=== PATIENT | female | born 1930 | race Caucasian/White ===

== ENCOUNTER 2016-07-09 14:15 | Emergency (ER) | payer MEDICARE, MEDICAID ==
[~2016-07-09] VITALS: Ht 165.1 cm; Wt 61.2 kg
--- NOTE | 2016-07-09 14:45 | NUR ---
pt ambulatory to er bed 14 w/ steady gait c/o lower back and lt side groin area pain s/p missed a step in the stairs causing her body to twist. no actual fall. happens 5 days ago. awaiting md meyers.
--- NOTE | 2016-07-09 14:47 | NUR ---
dr lara at bedside for eval.
--- NOTE | 2016-07-09 15:08 | NUR ---
pt to radiology for pelvic ct scan via [facility].
--- NOTE | 2016-07-09 15:59 | NUR ---
Patient discharged to home in stable condition. Written and verbal after care instructions given. Patient verbalizes understanding of instruction.
[2016-07-09 16:18] VITALS: BP 156/77
== END 2016-07-09 16:18 | disposition home or self-care (01) ==
LOC: ER 14:21
DX: S76.012A Strain of muscle, fascia and tendon of left hip, initial encounter (principal); Z88.5 Allergy status to narcotic agent; W01.0XXA Fall on same level from slipping, tripping and stumbling without subsequent striking against object, initial encounter; Y93.01 Activity, walking, marching and hiking; Y92.89 Other specified places as the place of occurrence of the external cause; Y99.8 Other external cause status
CPT/HCPCS: 72192-TC; A4606; Z7610

== ENCOUNTER 2019-09-25 15:39 | Inpatient (IN) | payer MEDICARE, MEDICAID ==
[~2019-09-25] VITALS: Ht 160 cm; Wt 61.7 kg
--- NOTE | 2019-09-25 15:50 | NUR ---
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 ON ROOM AIR, BREATHING EVENLY AND UNLABORED. CONNECTED TO THE MONITOR AND PULSE OX. KEPT COMFORTABLE, WILL CONTINUE TO MONITOR ACCORDINGLY.
[2019-09-25] MEDS ORDERED: MORPHINE SULFATE INJ 2 MG/ML DISP.SYRIN ONE ×2 (15:58→17:35)
[2019-09-25] MEDS ORDERED: ONDANSETRON HCL/PF 4 MG/2 ML VIAL ONE (15:58)
[2019-09-25] MEDS ORDERED: ONDANSETRON HCL/PF 4 MG/2 ML VIAL IVP ONE (16:00)
[2019-09-25] MEDS ORDERED: MORPHINE SULFATE INJ 2 MG/ML DISP.SYRIN IV ONE ×2 (16:00→18:00)
[2019-09-25 16:04] LABS: BASOPHILS # (AUTO) 0.1 /CMM (0.0-0.2); BASOPHILS % (AUTO) 0.7 % (0.0-2.0); EOSINOPHILS % (AUTO) 2.9 % (0.0-6.0); HEMATOCRIT 39 % (33-45); HEMOGLOBIN 12.6 g/dL (11.5-14.8); LYMPHOCYTES # (AUTO) 3.9 /CMM (0.8-4.8); LYMPHOCYTES % (AUTO) 46.6 % (20.0-44.0); MEAN CORPUSCULAR HGB CONC 32 g/dl (31.0-36.0); MEAN CORPUSCULAR VOLUME 86 fL (82-100); MONOCYTES # (AUTO) 0.8 /CMM (0.1-1.30); MONOCYTES % (AUTO) 9.4 % (2.0-12.0); NEUTROPHILS # (AUTO) 3.3 /CMM (1.8-8.9); NEUTROPHILS % (AUTO) 40.4 % (43.0-81.0); PLATELET COUNT (AUTO) 307 /CMM (150-450); RED BLOOD CELL COUNT(AUTO) 4.54 MIL/uL (4.0-5.2); WHITE BLOOD COUNT (AUTO) 8.3 K/uL (4.3-11.0)
[2019-09-25 16:13] LABS: CALCIUM, SERUM 9.5 mg/dL (8.5-10.1)
[2019-09-25] MEDS ORDERED: METO25TA4 PO (16:54)
[2019-09-25] MEDS ORDERED: CYCL30DR EACHEYE (16:54)
[2019-09-25] MEDS ORDERED: BIMA2.5D5 EACHEYE (16:54)
[2019-09-25] MEDS ORDERED: AMLO5TAB9 PO (16:54)
[2019-09-25] MEDS ORDERED: CYAN10006 IM (16:54)
[2019-09-25] MEDS ORDERED: BRIM5DRO3 EACHEYE (16:54)
[2019-09-25] MEDS ORDERED: LEVO75TA7 PO (16:54)
--- NOTE | 2019-09-25 17:20 | NUR ---
BED 310-2
[2019-09-25] MEDS ORDERED: PROP10DR2 EACHEYE (18:07)
[2019-09-25] MEDS ORDERED: ONDANSETRON HCL/PF 4 MG/2 ML VIAL IVP PRN (19:00)
[2019-09-25] MEDS ORDERED: ACETAMINOPHEN 325 MG TABLET PO PRN (19:00)
[2019-09-25] MEDS ORDERED: Z GUARD REMEDY 2 OZ OINT TP PRN (19:00)
--- NOTE | 2019-09-25 19:05 | NUR ---
MS RN ADMITTING NOTES RECEIVED PT FROM ER VIA SHERI. PT A/OX 3 BELIZEAN SPEAKING. RESPIRATIONS EVEN AND UNLABORED WITH NO S/S OF ACUTE DISTRESS OR SOB NOTED. PT NOTED WITH IV ACCESS TO RAC 20G, LAC 18. ORIENTED PT TO ROOM AND STAFF. SAFETY MEASURES IN PLACE WITH BED IN LOWEST LOCKED POSITION WITH SIDE RAILS UP X2. CALL LIGHT WITHIN REACH. WILL CONTINUE TO MONITOR.
--- NOTE | 2019-09-25 19:07 | NUR ---
wheeled patient via gurney accompanied by RN and emt in no distress. Rn at bedside to assume care.
--- NOTE | 2019-09-25 19:15 | NUR ---
MS RN NOTES PT REFUSED TO CHANGE INTO GOWN, PT STATED "LATER, LATER." PT ALSO REFUSED PHOTOS WELL SKIN ASSESSMENT FOR BACK AND SACRUM. WILL CONTINUE TO MONITOR.
--- NOTE | 2019-09-25 19:20 | NUR ---
MS RN NOTES PT REFUSED TO BE TURNED, WELL TO HAVE HOB ELEVATED. PT STATES "IT HURTS WHEN MOVED." WILL CONTINUE TO MONITOR.
[2019-09-25 20:00] VITALS: BP 173/70
[2019-09-25] MEDS: MORPHINE SULFATE INJ 2 MG/ML DISP.SYRIN IV PRN (20:34)
[2019-09-25] MEDS: IV NS 0.9% 1,000 ML IV PRN (20:34)
[2019-09-25] MEDS: LATANOPROST EYE DROP 0.005% 2.5 ML BOTTLE EACHEYE SCH (21:57)
[2019-09-25] MEDS ORDERED: CLONIDINE HCL 0.1MG/24H PTWK 1 EA PATCH TD SCH (23:30)
--- NOTE | 2019-09-26 | NUR ---
MS RN NOTES PT NOTED WITH ELEVATED BP, MD MADE AWARE, NEW ORDER FOR CLONIDINE 0.1MG PATCH. WILL CONTINUE TO MONITOR.
[2019-09-26] MEDS: MORPHINE SULFATE INJ 2 MG/ML DISP.SYRIN IV PRN ×5 (01:16→21:57)
--- NOTE | 2019-09-26 03:00 | NUR ---
MS RN NOTES PT REFUSED DVT PUMPS AT THIS TIME. WILL CONTINUE TO MONITOR.
[2019-09-26 06:16] LABS: BASOPHILS % (AUTO) 0.2 % (0.0-2.0); HEMATOCRIT 37 % (33-45); LYMPHOCYTES # (AUTO) 1.3 /CMM (0.8-4.8); LYMPHOCYTES % (AUTO) 10.6 % (20.0-44.0); MEAN CORPUSCULAR HGB CONC 32 g/dl (31.0-36.0); MEAN CORPUSCULAR VOLUME 85 fL (82-100); MONOCYTES # (AUTO) 1.3 /CMM (0.1-1.30); MONOCYTES % (AUTO) 11.3 % (2.0-12.0); NEUTROPHILS # (AUTO) 9.2 /CMM (1.8-8.9); NEUTROPHILS % (AUTO) 77.9 % (43.0-81.0); PLATELET COUNT (AUTO) 282 /CMM (150-450); WHITE BLOOD COUNT (AUTO) 11.9 K/uL (4.3-11.0)
[2019-09-26 06:54] LABS: CALCIUM, SERUM 8.9 mg/dL (8.5-10.1); CREATININE 0.9 mg/dL (0.6-1.3); MAGNESIUM 1.7 mg/dL (1.8-2.4); PHOSPHORUS 3.2 mg/dL (2.5-4.9); POTASSIUM 4.2 mmol/L (3.5-5.1)
[2019-09-26] MEDS: LEVOTHYROXINE SODIUM 75 MCG TABLET PO SCH (07:30)
--- NOTE | 2019-09-26 07:35 | NUR ---
MS RN NOTES PT IN BED AND AWAKE. PT A/OX 3 SAMOAN SPEAKING. RESPIRATIONS EVEN AND UNLABORED WITH NO S/S OF ACUTE DISTRESS OR SOB NOTED THROUGHOUT SHIFT. PT NOTED WITH IV ACCESS TO LAC 20G, LHAND 20G INFUSING NS @75CC/HR. NO COMPLAINTS OF PAIN AT THIS TIME. SAFETY MEASURES IN PLACE WITH BED IN LOWEST LOCKED POSITION WITH SIDE RAILS UP X2. CALL LIGHT WITHIN REACH. WILL ENDORSE TO ONCOMING NURSE FOR TAURUS.
[2019-09-26 08:00] VITALS: BP 114/57
--- NOTE | 2019-09-26 08:00 | NUR ---
MS RN NOTES PT IN BED AND AWAKE. PT A/OX 3 SYRIAN SPEAKING. RESPIRATIONS EVEN AND UNLABORED WITH NO S/S OF ACUTE DISTRESS OR SOB NOTED. PT PREFERS TO BE FLAT IN BED REFUSING HOB TO BE ELEVATED. WITH KELLY CATHETER DRAINING YELLOW URINE OUTPUT. ON NPO. AWAITING ORTHO CONSULT. PT NOTED WITH IV ACCESS TO LAC 20G, LT HAND 20G INFUSING NS @75CC/HR. NO COMPLAINTS OF PAIN AT THIS TIME. SAFETY MEASURES IN PLACE WITH BED IN LOWEST LOCKED POSITION WITH SIDE RAILS UP X2. CALL LIGHT WITHIN REACH.
[2019-09-26 08:08] LABS: THYROID STIMULATING HORMONE 2.089 uIU/mL (0.358-3.74)
--- NOTE | 2019-09-26 08:20 | NUR ---
PT'S VTE SCORE OF >5 AND ANTICOAGULANT WAS HELD DUE TO PENDING SURGERY THAT WILL BE DONE ANYTIME TODAY PER DR PADILLA.
[2019-09-26] MEDS: AMLODIPINE BESYLATE 5 MG TABLET PO SCH (08:50)
[2019-09-26] MEDS: METOPROLOL SUCCINATE 25 MG TAB.SR.24H PO SCH (08:50)
[2019-09-26] MEDS ORDERED: ACETAMINOPHEN 650 MG/SUPP.RECT RC PRN (10:00)
[2019-09-26] MEDS: IV NS 0.9% 1,000 ML IV PRN (10:17)
[2019-09-26] MEDS: Magnesium 1GM/D5W 100ML PREMIX 100 ML IV SCH ×2 (11:36→13:11)
[2019-09-26] MEDS: BRIMONIDINE TARTRATE OPHT SOLN 5 ML BOTTLE EACHEYE SCH ×2 (12:04→17:28)
--- NOTE | 2019-09-26 13:03 | NUR ---
PT IS IN SO MUCH PAIN AND WAS CRYING NOTIFIED DR APDILLA WITH ORDERS TO GIVE MORPHINE SO4 4 MG IV ONE TIME.
[2019-09-26] MEDS ORDERED: MORPHINE SULFATE INJ 4 MG/ML DISP.SYRIN IV ONE (13:30)
--- NOTE | 2019-09-26 14:15 | NUR ---
Pt is always busy talking to her daughter on her cell phone. Pt keeps asking for Ortho consult if what time he's coming to see her. Explained that Coury,PA is coming anytime.
[2019-09-26 16:00] VITALS: BP 151/66
--- NOTE | 2019-09-26 19:00 | NUR ---
Pt lying in bed refused to be turned to change bed linen and do skin care for the whole shift since morning inspite of explaining the risks and benefits, but pt refused. Family made aware. Even if PRN pain meds was administered prior to turning, pt still insists to refuse. Emptied john bag with 700 ml yellow urine output. For Left hip IM rodding tomorrow with all consents signed. Family aware and wants to be notified what time will be pt's sx tomorrow. 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
--- NOTE | 2019-09-26 19:30 | NUR ---
MS RN NOTES RECEIVED ON BED A/O X3,SPEAK [place],BREATHING REGULAR,NOT IN ANY FORM DISTRESS,IVF NS 75ML/HR RATE INFUSING ON LEFT AC.NPO STATUS FOR SURGERY TOMORROW.S/P FALL AT HOME SUSTAINED LEFT HIP FRACTURE.KELLY CATH IN PLACE DRAINING YELLOWISH OUTPUT.CALL LIGHT IN REACH,NEEDS ANTICIPATED.
[2019-09-26 20:00] VITALS: BP 116/51
[2019-09-26 20:23] VITALS: BP 116/51
[2019-09-26] MEDS: LATANOPROST EYE DROP 0.005% 2.5 ML BOTTLE EACHEYE SCH (21:21)
--- NOTE | 2019-09-26 21:57 | NUR ---
MS RN NOTES PAIN MANAGEMENT C/O LEFT HIP 8/10 ON PAIN SCALE,MEDICATED WITH MORPHINE 4MG IV ORDERED.
[2019-09-27] VITALS (12 sets, daily range): BP systolic 96–150; BP diastolic 47–88
[2019-09-27] MEDS: IV NS 0.9% 1,000 ML IV PRN (00:11)
[2019-09-27 07:10] LABS: CALCIUM, SERUM 8.4 mg/dL (8.5-10.1); CREATININE 0.8 mg/dL (0.6-1.3); MAGNESIUM 1.9 mg/dL (1.8-2.4); POTASSIUM 4.2 mmol/L (3.5-5.1)
[2019-09-27] MEDS ORDERED: BUPIVACAINE 0.5 % PF 150 MG/30 ML VIAL ONE (07:25)
[2019-09-27] MEDS ORDERED: ANESTHESIA TRAY IN PYXIS 1 EA TRAY MC ONE ×2 (07:25→08:51)
[2019-09-27] MEDS ORDERED: BACITRACIN 50000 UNITS/VIAL ONE (07:26)
[2019-09-27] MEDS: LEVOTHYROXINE SODIUM 75 MCG TABLET PO SCH (07:30)
--- NOTE | 2019-09-27 07:30 | NUR ---
MS/RN OPENING NOTES Patient in bed, A&O x 3, Moldovan speaking. Breathing even and non-labored on 2L oxygen via NC. No respiratory or cardiac distress noted. No complaints of pain/discomfort at this time. IV access noted on the left hand #20, patent and intact, infusing NS @ 75ml/hr. 2nd IV access noted on Left AC #20, patent and intact, flushing well. No s/s of infection/infiltration noted on the sites. Fall precautions maintained. Will continue to monitor for any changes in condition.
[2019-09-27] MEDS ORDERED: FENTANYL PF 250MCG/5ML AMPUL ONE (08:38)
[2019-09-27] MEDS ORDERED: MIDAZOLAM HCL 2 MG/2ML VIAL ONE (08:38)
--- NOTE | 2019-09-27 08:55 | NUR ---
PT WAS BROUGHT TO O.R. FOR LEFT HIP IM RODDING PROCEDURE. Addendum: 09/27/19 at 0857 by MANUEL ROBISON RN WITH STABLE V/S.ABLE TO REMOVE PT'S TOP CLOTHES AND CHANGED TO HOSPITAL GOWN WHICH PT HAS BEEN REFUSING TO BE CHANGED SINCE YESTERDAY INSPITE OF EXPLANATIONS.
[2019-09-27 10:46] LABS: BASOPHILS % (AUTO) 0.5 % (0.0-2.0); EOSINOPHILS % (AUTO) 0.1 % (0.0-6.0); HEMATOCRIT 34 % (33-45); HEMOGLOBIN 10.9 g/dL (11.5-14.8); LYMPHOCYTES # (AUTO) 1.2 /CMM (0.8-4.8); LYMPHOCYTES % (AUTO) 13.1 % (20.0-44.0); MEAN CORPUSCULAR HGB CONC 32 g/dl (31.0-36.0); MEAN CORPUSCULAR VOLUME 87 fL (82-100); MONOCYTES # (AUTO) 1.1 /CMM (0.1-1.30); MONOCYTES % (AUTO) 11.6 % (2.0-12.0); NEUTROPHILS # (AUTO) 7.1 /CMM (1.8-8.9); NEUTROPHILS % (AUTO) 74.7 % (43.0-81.0); PLATELET COUNT (AUTO) 211 /CMM (150-450); RED BLOOD CELL COUNT(AUTO) 3.91 MIL/uL (4.0-5.2); WHITE BLOOD COUNT (AUTO) 9.5 K/uL (4.3-11.0)
--- NOTE | 2019-09-27 11:02 | NUR ---
DAVIS CISNEROS PA STATED THAT BLOOD THINNER (LOVENOX)CAN START TOMORROW S/P LT HIP IM RODDING.
--- NOTE | 2019-09-27 11:43 | NUR ---
PT CAME BACK FROM O.R. S/P LT HIP INTRAMEDULLARY RODDING BY DR DENNEY. PT LOST 100 ML BLOOD. PT ALERT, AWAKE AND VERBALLY RESPONSIVE. PT'S LT HIP SURGICAL DRESSING IS CLEAN,INTACT AND DRY. KELLY CATHETER DRAINING CLEAR YELLOW URINE OUTPUT AND KELLY CATH TO BE REMOVED TOMORROW . WAITING FOR PENDING CBC STAT RESULT. WILL START ON CARDIAC MECH SOFT WITH ASPIRATION PRECAUTIONS.WILL ADMINISTER PT'S BP MEDS. BP 145/68 HR 85 RR 18 T 97.8 O2 SAT 100%. WILL CONTINUE TO MONITOR PT'S V/S PER POST SX PROTOCOL. PT DENIES ANY PAIN AT THIS TIME. PT WATCHING ISRAEL[place] CHANNEL ON HER ROOM.WILL MONITOR.
[2019-09-27] MEDS: BRIMONIDINE TARTRATE OPHT SOLN 5 ML BOTTLE EACHEYE SCH ×2 (11:48→16:05)
[2019-09-27] MEDS: AMLODIPINE BESYLATE 5 MG TABLET PO SCH (11:48)
[2019-09-27] MEDS: METOPROLOL SUCCINATE 25 MG TAB.SR.24H PO SCH (11:49)
--- NOTE | 2019-09-27 12:00 | NUR ---
SERVED PT LUNCH MEAL AND ELEVATED HER HEAD TOLERATING WELL.PT EXPRESSED APPRECIATION OF HER SUCCESSFUL SX AND PT STATED THAT SHE IS SO HUNGRY THE PAST 2 SAYS THAT SHE HASN'T EATEN AND WAS SO WELL PLEASED WITH THE DELICIOUS MEAL BEING SERVED TO HER RIGHT NOW FOR LUNCH. CERTIFIED PERSONAL TRAINER,NINO AT THE BEDSIDE TRANSLATING FOR THE PT. P.T. ARRIVED AND SPOKE TO THE PT WELL WITH RODO MCDONALD RN TRANSLATING FOR THE P.T. WELL.
--- NOTE | 2019-09-27 12:05 | NUR ---
PT'S HGB WAS 11.1 NO NEED TO TRANSFUSE BLOOD AT THIS TIME.
[2019-09-27 12:26] LABS: BASOPHILS % (AUTO) 0.5 % (0.0-2.0); EOSINOPHILS % (AUTO) 0.2 % (0.0-6.0); HEMATOCRIT 35 % (33-45); HEMOGLOBIN 11.1 g/dL (11.5-14.8); LYMPHOCYTES # (AUTO) 1.5 /CMM (0.8-4.8); LYMPHOCYTES % (AUTO) 14.3 % (20.0-44.0); MEAN CORPUSCULAR HGB CONC 32 g/dl (31.0-36.0); MEAN CORPUSCULAR VOLUME 87 fL (82-100); MONOCYTES # (AUTO) 1.1 /CMM (0.1-1.30); MONOCYTES % (AUTO) 10.8 % (2.0-12.0); NEUTROPHILS # (AUTO) 7.6 /CMM (1.8-8.9); NEUTROPHILS % (AUTO) 74.2 % (43.0-81.0); PLATELET COUNT (AUTO) 239 /CMM (150-450); RED BLOOD CELL COUNT(AUTO) 4.01 MIL/uL (4.0-5.2); WHITE BLOOD COUNT (AUTO) 10.3 K/uL (4.3-11.0)
[2019-09-27] MEDS: IV LR 1000 ML 1,000 ML IV PRN (13:57)
[2019-09-27] MEDS: HYDROCODONE/APAP 5/325MG 1 EACH TABLET PO PRN (14:18)
[2019-09-27] MEDS: CEFAZOLIN 2 GM in IV D5W 100 ML IV SCH (17:06)
--- NOTE | 2019-09-27 19:00 | NUR ---
MS/RN CLOSING NOTES Patient in bed, A&O x 3, Paraguayan speaking. Breathing even and non-labored on 2L oxygen via NC, no SOB noted. No cardiac distress noted. No complaints of pain/discomfort at this time. IV access noted on the left hand #20, patent and intact, infusing LR @ 75ml/hr. 2nd IV access noted on Left AC #20, patent and intact, flushing well. No s/s of infection/infiltration noted on the sites. Cowan in place, draining clear,yellow urine well. Fall precautions maintained. Patient on mechanical soft diet. COVID results still pending, enoxaparin to be started tomorrow. Will endorse to web assistant nurse. Addendum: 09/27/19 at 2023 by FADY ECHEVARRIA RN In addition to above, Patient refused to turn and reposition in bed throughout the day despite explaining risks and benefits.
--- NOTE | 2019-09-27 19:30 | NUR ---
MS RN NOTED ON BED A/O X3,S/P LEFT HIP INTRAMEDULLARY RODDING,DRESSING INTACT AND DRY,ICE IN PLACE TO REDUCE PAIN.IVF LR AT 75ML/HR RATE IN PROGRESS VIA IV PUMP ON LEFT HAND SALINE LOCK,DVT PUMP IN USED FOR DVT PROPHYLAXIS.BLOOD THINNER TO START TOMORROW.PAIN TOLERABLE AT THE MOMENT.CALL LIGHT IN REACH,NEEDS ANTICIPATED.
[2019-09-27] MEDS: LATANOPROST EYE DROP 0.005% 2.5 ML BOTTLE EACHEYE SCH (20:59)
[2019-09-28] MEDS: CEFAZOLIN 2 GM in IV D5W 100 ML IV SCH (01:56)
--- NOTE | 2019-09-28 02:00 | NUR ---
MS RN NOTES SECOND DOSE OF ANCEF IV HUNG
[2019-09-28] MEDS: HYDROCODONE/APAP 5/325MG 1 EACH TABLET PO PRN ×2 (04:01→09:57)
--- NOTE | 2019-09-28 04:01 | NUR ---
MS RN NOTES PAIN MANAGEMENT AWAKE,C/O LEFT HIP PAIN 7/10 ON PAIN SCALE,MEDICATED WITH NORCO 5/325MG,1 TAB PO GIVEN WITH APPLE SAUCE.NEGATIVE FOR ASPIRATION.
[2019-09-28] MEDS: IV LR 1000 ML 1,000 ML IV PRN (06:10)
[2019-09-28 06:48] LABS: BASOPHILS % (AUTO) 0.5 % (0.0-2.0); EOSINOPHILS % (AUTO) 0.2 % (0.0-6.0); HEMATOCRIT 24 % (33-45); HEMOGLOBIN 7.7 g/dL (11.5-14.8); LYMPHOCYTES # (AUTO) 1.3 /CMM (0.8-4.8); LYMPHOCYTES % (AUTO) 16.1 % (20.0-44.0); MEAN CORPUSCULAR HGB CONC 32 g/dl (31.0-36.0); MEAN CORPUSCULAR VOLUME 87 fL (82-100); MONOCYTES # (AUTO) 1.3 /CMM (0.1-1.30); MONOCYTES % (AUTO) 16.4 % (2.0-12.0); NEUTROPHILS # (AUTO) 5.3 /CMM (1.8-8.9); NEUTROPHILS % (AUTO) 66.8 % (43.0-81.0); PLATELET COUNT (AUTO) 181 /CMM (150-450); RED BLOOD CELL COUNT(AUTO) 2.75 MIL/uL (4.0-5.2)
--- NOTE | 2019-09-28 06:49 | NUR ---
MS RN NOTES PAIN MANAGEMENT EFFECTIVE,IVF INFUSING,VON REMAINS PATENT LEFT ARM.KELLY DRAINS WELL,PT EVAL FOR AMBULATION,IN NO ACUTE DISTRESS.
[2019-09-28 07:08] LABS: ALANINE AMINOTRANSFERASE 14 U/L (12-78); ALBUMIN 2.3 g/dL (3.4-5.0); ALKALINE PHOSPHATASE 38 U/L (46-116); ASPARTATE AMINOTRANSFERASE 28 U/L (15-37); BILIRUBIN,TOTAL 0.6 mg/dL (0.2-1.0); CARBON DIOXIDE 26 mmol/L (21-32); CHLORIDE 103 mmol/L (98-107); CREATININE 0.8 mg/dL (0.6-1.3); GLUCOSE 118 mg/dL (74-106); MAGNESIUM 1.7 mg/dL (1.8-2.4); PHOSPHORUS 1.7 mg/dL (2.5-4.9); POTASSIUM 4.3 mmol/L (3.5-5.1); SODIUM SERUM 135 mmol/L (136-145); TOTAL PROTEIN, SERUM 5.4 g/dL (6.4-8.2); UREA NITROGEN, BLOOD 11 mg/dL (7-18)
[2019-09-28] MEDS: LEVOTHYROXINE SODIUM 75 MCG TABLET PO SCH (07:47)
[2019-09-28 08:00] VITALS: BP 112/53
--- NOTE | 2019-09-28 08:00 | NUR ---
MS/RN OPENING NOTES Patient in bed, A&O x 3, Cameroonian speaking. Breathing even and non-labored on room air. No respiratory or cardiac distress noted. No complaints of pain/discomfort at this time. IV access noted on the left hand #20, patent and intact, infusing LR @ 75ml/hr. 2nd IV access noted on Left AC #20, patent and intact, flushing well. No s/s of infection/infiltration noted on the sites. Fall precautions maintained. Will continue to monitor for any changes in condition.
[2019-09-28] MEDS: METOPROLOL SUCCINATE 25 MG TAB.SR.24H PO SCH (08:07)
[2019-09-28] MEDS: AMLODIPINE BESYLATE 5 MG TABLET PO SCH (08:08)
[2019-09-28] MEDS: BRIMONIDINE TARTRATE OPHT SOLN 5 ML BOTTLE EACHEYE SCH ×2 (08:10→16:14)
[2019-09-28] MEDS: NEUTRA PHOS 1 POWD.PACKET PO SCH ×2 (08:47→16:05)
[2019-09-28] MEDS: Magnesium 1GM/D5W 100ML PREMIX 100 ML IV SCH ×2 (08:47→10:02)
[2019-09-28] MEDS ORDERED: ENOXAPARIN SODIUM 40 MG/0.4 ML DISP.SYRIN SQ SCH (09:00)
[2019-09-28] MEDS ORDERED: RIVA10TA PO (13:25)
--- NOTE | 2019-09-28 15:09 | NUR ---
REMOVED KELLY CATHETER WITH 700 ML CLEAR YELLOW URINE OUTPUT.NO BLEEDING NOTED.-PT TOLERATED WELL.
[2019-09-28 15:52] VITALS: BP 112/53
[2019-09-28 15:57] VITALS: BP 123/56
[2019-09-28 16:00] VITALS: BP 123/56
--- NOTE | 2019-09-28 16:32 | NUR ---
PT ABLE TO AVOID ABOUT 250 ML OF YELLOW URINE OUTPUT IN A BEDPAN.NO HEMATURIA NOTED.
--- NOTE | 2019-09-28 18:08 | NUR ---
DISCHARGED PT TO [facility] VIA AMBULANCE WITH STABLE V/S. IV H/L REMOVED TO LT HAND AND LT AC WITH NO BLEEDING NOTED. NO S/S OF PAIN OR DISTRESS. REPORT CALLED IN TO VAISHALI KONG OF [facility]. PT WILL BE IN ROOM 321.DISCHARGED WITH ALL OF HER BELONGINGS CHECKED AND SIGNED.
--- NOTE | 2019-09-28 18:11 | NUR ---
DAUGHTER, ARIANNA WHO WAS WAITING OUTSIDE [facility] MADE AWARE.
== END 2019-09-28 18:09 | DRG 480 ==
LOC: ER 15:48 → MED 17:53
PROVIDERS: ADMIT Nurse Practitioner Acute Care; ATTEND Nurse Practitioner Acute Care
PROC: 0QS706Z Reposition Left Upper Femur with Intramedullary Internal Fixation Device, Open Approach (ICD-10-PCS; principal; 2019-09-25)
DX: S72.142A Displaced intertrochanteric fracture of left femur, initial encounter for closed fracture (principal); I50.33 Acute on chronic diastolic (congestive) heart failure; I11.0 Hypertensive heart disease with heart failure; F03.90 Unspecified dementia, unspecified severity, without behavioral disturbance, psychotic disturbance, mood disturbance, and anxiety; E03.9 Hypothyroidism, unspecified; W18.30XA Fall on same level, unspecified, initial encounter; Y93.9 Activity, unspecified; H40.9 Unspecified glaucoma; E53.8 Deficiency of other specified B group vitamins; R73.9 Hyperglycemia, unspecified; Y92.009 Unspecified place in unspecified non-institutional (private) residence as the place of occurrence of the external cause; D62 Acute posthemorrhagic anemia
CPT/HCPCS: 36415; 71045-TC; 73502; 80048-TC; 80053-TC; 80061-TC; 82728-TC; 83540-TC; 83735-TC; 84100-TC; 84439-TC; 84443-TC; 84484-TC; 85025-TC; 85730-TC; 86850-TC; 87081-TC; 93307-TC; 97110-TC; 97116-TC; 97530-TC; A6209; C1713; G0378; J0690; J1650; J2250; J2270; J2405; J2704; J2710; J2765; J3010; J3475; J3490; J7030; J7060; J7120; U0003-CS